=== PATIENT | female | born 1945 | race Caucasian/White ===

== ENCOUNTER 2022-02-04 15:33 | Observation (INO) | payer BC, OTHER ==
[2022-02-04 17:25] LABS: BASO % 0.6 % (0-2.0); EOS % 1.2 % (0-4.5); HEMATOCRIT 33.4 % (32.4-45.2); HEMOGLOBIN 11.2 GM/dL (10.7-15.3); LYMPH % 27.6 % (8-40); MCH 29.8 pg (25.7-33.7); MCHC 33.5 g/dl (32.0-36.0); MEAN CELL VOLUME 88.9 fl (80-96); MEAN PLT VOLUME 7.7 fl (7.5-11.1); MONO % 8.5 % (3.8-10.2); NEUT % 62.1 % (42.8-82.8); PLATELET COUNT 210 10^3/uL (134-434); RBC 3.75 M/mm3 (3.60-5.2); RDW 13.2 % (11.6-15.6); WHITE BLOOD COUNT 9.4 K/mm3 (4.0-10.0)
[2022-02-04 17:35] LABS: INR 1.14 (0.83-1.09); PROTHROMBIN TIME (PATIENT) 13.1 SEC (9.7-13.0)
[2022-02-04 17:38] LABS: ACTIVATED PTT 25.9 SECONDS (25.2-36.5)
[2022-02-04 17:44] LABS: CALCIUM 8.4 mg/dL (8.5-10.1)
[2022-02-04 17:45] LABS: ALBUMIN 3.2 g/dl (3.4-5.0); BLOOD UREA NITROGEN 9.6 mg/dL (7-18); MAGNESIUM 2.1 mg/dL (1.8-2.4)
[2022-02-04 17:48] LABS: CREATININE 1.1 mg/dL (0.55-1.3)
[2022-02-04 17:49] LABS: TOT PROT 6.4 g/dl (6.4-8.2)
[2022-02-04 17:50] LABS: BILIRUBIN,TOTAL 0.4 mg/dL (0.2-1)
[2022-02-04 17:53] LABS: N-TERMINAL BNP 652.9 pg/ml (5-450)
[2022-02-04] MEDS ORDERED: ASPIRIN 81 MG CHEWABLE TABLETS PO ONE (18:08)
[2022-02-04] MEDS ORDERED: ASPIRIN 81 MG CHEWABLE TABLETS ONE (18:19)
[2022-02-04] MEDS ORDERED: ALPRAZolam 0.25 MG TABLET PO SCH (22:00)
[2022-02-04] MEDS: KETOROLAC TROMETHAMINE 0.5% EYE DROP 1 DROP DROPS OD SCH (23:06)
[2022-02-05 01:35] VITALS: BMI 28.5
[2022-02-05] MEDS ORDERED: LEVOTHYROXINE NA 25 MCG TABLET (FP) PO SCH (10:00)
[2022-02-05] MEDS ORDERED: LISINOPRIL 5 MG TABLET PO SCH (10:00)
[2022-02-05] MEDS ORDERED: ASPIRIN 81 MG CHEWABLE TABLETS PO SCH (10:00)
[2022-02-05] MEDS ORDERED: SPIRONOLACTONE 25 MG TABLET PO SCH (10:00)
[2022-02-05] MEDS ORDERED: CHOLECALCIFEROL (VIT D3) 1,000 UNIT (25 MCG) TABLET PO SCH (10:00)
[2022-02-05] MEDS ORDERED: ASCORBIC ACID 500 MG TABLET (FP) PO SCH (10:00)
[2022-02-05] MEDS ORDERED: BROMFENAC SODIUM OD SCH (10:00)
[2022-02-05] MEDS ORDERED: ATORVASTATIN CA 40 MG TABLET (FP) PO SCH (10:00)
[2022-02-05] MEDS ORDERED: PANTOPRAZOLE 40 MG TABLET PO SCH (10:00)
[2022-02-05] MEDS ORDERED: traZODone HCL 50 MG TABLET (FP) PO SCH (10:00)
[2022-02-05] MEDS ORDERED: ENOXAPARIN NA (PORCINE) 40 MG/0.4 ML DISP.SYRIN SQ SCH (10:00)
[2022-02-05] MEDS ORDERED: CLOPIDOGREL BISULFATE 75 MG TABLET (FP) PO SCH (10:00)
[2022-02-05] MEDS ORDERED: metoPROLOL SUCCINATE 25 MG TAB.SR.24H (FP) PO SCH (10:00)
[2022-02-05] MEDS: KETOROLAC TROMETHAMINE 0.5% EYE DROP 1 DROP DROPS OD SCH (11:02)
[2022-02-05 11:15] VITALS: TEMP 98.6
[2022-02-05 13:59] VITALS: BP 96/58; PULSE 66
== END 2022-02-05 17:02 | disposition home or self-care (01) ==
LOC: JER 15:33 → JERBED 18:10 → J4S 21:33
PROVIDERS: ADMIT Hospitalist
DX: F41.9 Anxiety disorder, unspecified (principal); I11.9 Hypertensive heart disease without heart failure; I25.2 Old myocardial infarction; E03.9 Hypothyroidism, unspecified; E78.5 Hyperlipidemia, unspecified; R07.9 Chest pain, unspecified; Z95.0 Presence of cardiac pacemaker; Z95.5 Presence of coronary angioplasty implant and graft; I25.10 Atherosclerotic heart disease of native coronary artery without angina pectoris
CPT/HCPCS: 36415; 71046-TC-FY; 80053; 83735; 83880; 84484; 85025; 85610; 85730; 93005; 93010; 93306-TC; 99285-25; C9803-CS; G0378; U0003; U0005